=== PATIENT | male | born 1985 | race Caucasian/White ===

== ENCOUNTER 2018-07-13 14:05 | Emergency (ER) | payer SELFPAY ==
[~2018-07-13] VITALS: Ht 172.7 cm; Wt 71.7 kg
[2018-07-13 14:10] VITALS: Ht 172.7 cm; Wt 71.7 kg
[2018-07-13 15:30] VITALS: BP 113/58
== END 2018-07-13 16:12 | disposition home or self-care (01) ==
LOC: ED 14:05
DX: R07.89 Other chest pain (principal); R00.2 Palpitations; R06.02 Shortness of breath; J45.909 Unspecified asthma, uncomplicated
CPT/HCPCS: Q0092

== ENCOUNTER 2020-07-28 04:12 | Emergency (ER) | payer SELFPAY ==
[~2020-07-28] VITALS: Ht 172.7 cm; Wt 74.8 kg
[2020-07-28 04:14] VITALS: BP 145/96; Ht 172.7 cm; Wt 74.8 kg
== END 2020-07-28 05:49 | disposition left against medical advice (07) ==
LOC: ED 04:12
DX: U07.1 COVID-19 (principal); J45.909 Unspecified asthma, uncomplicated
CPT/HCPCS: U0003

== ENCOUNTER 2020-08-15 21:06 | Emergency (ER) | payer MEDICAID, SELFPAY ==
[~2020-08-15] VITALS: Ht 172.7 cm; Wt 86.2 kg
[2020-08-15 21:10] VITALS: Ht 172.7 cm; Wt 86.2 kg
[2020-08-15 22:26] VITALS: BP 135/83
== END 2020-08-15 22:26 | disposition home or self-care (01) ==
LOC: ED 21:06
DX: H53.9 Unspecified visual disturbance (principal); R30.0 Dysuria; J45.909 Unspecified asthma, uncomplicated
CPT/HCPCS: 82962; 87491; 87591; J0696

== ENCOUNTER 2020-08-18 00:17 | Emergency (ER) | payer MEDICAID, SELFPAY ==
[~2020-08-18] VITALS: Ht 172.7 cm; Wt 86.2 kg
[2020-08-18 00:18] VITALS: BP 148/102; Ht 172.7 cm; Wt 86.2 kg
== END 2020-08-18 03:02 | disposition home or self-care (01) ==
LOC: ED 00:17
DX: R42 Dizziness and giddiness (principal); M79.10 Myalgia, unspecified site; M54.9 Dorsalgia, unspecified; J45.909 Unspecified asthma, uncomplicated; F17.210 Nicotine dependence, cigarettes, uncomplicated